=== PATIENT | female | born 1960 | race Caucasian/White ===

== ENCOUNTER → 2016-06-03 | Outpatient (CLI) | payer OTHER ==
[~2016-06-03] VITALS: Ht 154.9 cm; Wt 64.4 kg
[~2016-06-03] MED LIST: ATENOLOL25 MG PO; CALTRATE 600 +1 EAC1 PO; CARAFATE1 GM PO; CYANOCOBAL1000 MCG/2 IM; DAILY MULTIPLE1 EACH PO; HYDROCODON-ACE1 EAC7 PO; LISINOPRIL10 MG PO; PROTONIX40 MG PO; VITAMIN D5000 UNI1 PO; WELLBUTRIN XL150 MG PO
[2016-06-03 12:06] LABS: HEMATOCRIT 37.3 % (36.0-46.0); MCH 29.3 PG (29.0-34.0); MCHC 32.4 G/DL (30.0-36.0); MCV 90.3 FL (83-99); MEAN PLAT.VOLUME 9.9 uM^3 (9.5-12.4); PLATELET COUNT 288 K/uL (156-360); RBC DIS.WIDTH-CV 12.9 % (11.8-14.6); RBC DIS.WIDTH-SD 42.1 % (39-53); RED BLOOD COUNT 4.13 M/uL (3.80-5.20); WHITE BLOOD COUNT 6.4 K/uL (4.1-10.2)
[2016-06-03 12:37] LABS: ANION GAP 9 MEQ/L (2-14); CHLORIDE 106 MEQ/L (99-109); GFR ESTIMATE (CALCULATED) > 59 mL/min/; GLUCOSE 94 mg/dL (70-99); POTASSIUM 2.6 MEQ/L (3.7-5.4); SAMPLE HEMOLYSIS CHECK 0; SAMPLE ICTERIC CHECK 0; SAMPLE LIPEMIA CHECK 0; SODIUM 146 MEQ/L (136-147); UREA NITROGEN (BUN) 8 mg/dL (9-23)
== END | disposition home or self-care (01) ==
LOC: AMB 11:21
PROVIDERS: Surgery
PROC: 0DJ Gastrointestinal System, Inspection (ICD-10-PCS; principal; 2016-06-03)
DX: K90.49 Malabsorption due to intolerance, not elsewhere classified (principal); Z53.09 Procedure and treatment not carried out because of other contraindication; E87.6 Hypokalemia
CPT/HCPCS: 80048; 84132 91; 85027; 93005; 99214; J3480

== ENCOUNTER → 2016-06-04 | Outpatient (CLI) | payer OTHER ==
[~2016-06-04] VITALS: Ht 154.9 cm; Wt 64.4 kg
== END | disposition home or self-care (01) ==
LOC: AMB 10:18
PROC: 0DJ08ZZ Inspection of Upper Intestinal Tract, Via Natural or Artificial Opening Endoscopic (ICD-10-PCS; principal; 2016-06-04)
DX: K90.49 Malabsorption due to intolerance, not elsewhere classified (principal); Z98.84 Bariatric surgery status; K21.9 Gastro-esophageal reflux disease without esophagitis; Z87.891 Personal history of nicotine dependence
CPT/HCPCS: 84132

== ENCOUNTER 2016-06-25 08:10 | Inpatient (IN) | payer OTHER ==
[~2016-06-25] VITALS: Ht 154.9 cm; Wt 64.0 kg
[~2016-06-25 08:10] MED LIST changes: +KLOR-CON M2020 MEQ PO
[2016-06-25 10:02] VITALS: BP 106/67
[2016-06-25 11:22] LABS: POINT-OF-CARE METER ID UU14174212
[2016-06-25 16:30] VITALS: BP 93/59
[2016-06-25 19:54] VITALS: BP 98/55
[2016-06-25 23:43] VITALS: BP 90/53
[2016-06-26 03:53] VITALS: BP 85/50
[2016-06-26 06:45] VITALS: BP 90/52
[2016-06-26 07:24] LABS: HEMATOCRIT 35.2 % (36.0-46.0); MCH 29.9 PG (29.0-34.0); MCHC 31.8 G/DL (30.0-36.0); MCV 93.9 FL (83-99); MEAN PLAT.VOLUME 10.3 uM^3 (9.5-12.4); PLATELET COUNT 261 K/uL (156-360); RBC DIS.WIDTH-CV 12.4 % (11.8-14.6); RBC DIS.WIDTH-SD 43.1 % (39-53); RED BLOOD COUNT 3.75 M/uL (3.80-5.20)
[2016-06-26 07:34] LABS: ANION GAP 8 MEQ/L (2-14); CHLORIDE 106 MEQ/L (99-109); GFR ESTIMATE (CALCULATED) > 59 mL/min/; GLUCOSE 84 mg/dL (70-99); MAGNESIUM 1.8 mg/dl (1.3-2.7); POTASSIUM 4.6 MEQ/L (3.7-5.4); SAMPLE HEMOLYSIS CHECK 0; SAMPLE ICTERIC CHECK 0; SAMPLE LIPEMIA CHECK 0; SODIUM 143 MEQ/L (136-147); UREA NITROGEN (BUN) 11 mg/dL (9-23)
[2016-06-26 07:38] LABS: WHITE BLOOD COUNT 11.8 K/uL (4.1-10.2)
[2016-06-26] MEDS ORDERED: KLOR-CON M2020 MEQ PO (08:30)
[2016-06-26] MEDS ORDERED: HYDROCODON-ACE1 EAC7 PO (08:30)
== END 2016-06-26 09:32 | disposition home or self-care (01) | DRG 328 ==
LOC: 2SOUTH 08:10 → 2EAST 16:32
PROVIDERS: Surgery
DX: K31.4 Gastric diverticulum (principal); K44.9 Diaphragmatic hernia without obstruction or gangrene; R11.2 Nausea with vomiting, unspecified
CPT/HCPCS: 80048; 82948; 83735; 84100; 85027; J0330; J0690; J1100; J1170; J1644; J1815; J1885; J2250; J2405; J2710; J3010; J3480; J7120; S0020

== ENCOUNTER → 2017-07-01 | Outpatient (CLI) | payer OTHER ==
[~2017-07-01] VITALS: Ht 157.5 cm; Wt 66.7 kg
== END | disposition home or self-care (01) ==
LOC: AMB 10:34
PROC: 0DJ08ZZ Inspection of Upper Intestinal Tract, Via Natural or Artificial Opening Endoscopic (ICD-10-PCS; principal; 2017-07-01)
DX: K21.0 Gastro-esophageal reflux disease with esophagitis (principal); K90.89 Other intestinal malabsorption; R10.13 Epigastric pain; Z98.84 Bariatric surgery status; I10 Essential (primary) hypertension; E78.5 Hyperlipidemia, unspecified; E66.9 Obesity, unspecified
CPT/HCPCS: 93005